=== PATIENT | male | born 1980 | race Caucasian/White ===

== ENCOUNTER 2017-05-29 19:37 | Emergency (ER) | payer MEDICAID ==
[2017-05-29 20:44] LABS: ADD MAN DIFF? NO
[2017-05-29 20:47] LABS: WHITE BLOOD COUNT 5.6 10^3/ul (4.8-10.8)
[2017-05-29 20:47] LABS: BASOPHILS % 0.5 % (0.0-2.0); EOSINOPHILS # 0.2 10^3/ul (0.0-0.5); EOSINOPHILS % 3.4 % (0.0-7.0); HEMATOCRIT 42.7 % (42.0-52.0); HEMOGLOBIN 14.3 g/dl (14.0-18.0); LYMPHOCYTES # 1.3 10^3/ul (0.8-2.9); LYMPHOCYTES % 23.3 % (15.0-51.0); MEAN CORPUSCULAR HEMOGLOBIN 27.8 pg (29.0-33.0); MEAN CORPUSCULAR HGB CONC 33.5 g/dl (32.0-37.0); MEAN CORPUSCULAR VOLUME 82.9 fl (82.0-101.0); MEAN PLATELET VOLUME 9.3 fl (7.4-10.4); MONOCYTE # 0.7 10^3/ul (0.3-0.9); MONOCYTES % 11.6 % (0.0-11.0); NEUTROPHIL # 3.4 10^3/ul (1.6-7.5); NEUTROPHILS % 60.7 % (39.0-77.0); PLATELET COUNT 278 10^3/UL (140-415); RED BLOOD COUNT 5.15 10^6/ul (4.70-6.10); RED CELL DISTRIBUTION WIDTH 12.9 % (11.5-14.5)
[2017-05-29] MEDS: SOD CHLORIDE 0.9% 1,000 ML IV (20:49)
[2017-05-29] MEDS: ACETAMINOPHEN 500 MG TAB PO (20:55)
[2017-05-29 20:56] LABS: ADD UMIC NO; UR ASCORBIC ACID NEGATIVE (NEGATIVE); UR BILIRUBIN (Dip) NEGATIVE (NEGATIVE); UR BLOOD (Dip) NEGATIVE (NEGATIVE); UR CLARITY CLEAR (CLEAR); UR COLOR YELLOW (YELLOW); UR GLUCOSE (Dip) 2+ mg/dL (NEGATIVE); UR KETONES (Dip) NEGATIVE (NEGATIVE); UR LEUKOCYTE ESTERASE (Dip) NEGATIVE Leu/ul (NEGATIVE); UR NITRITE (Dip) NEGATIVE (NEGATIVE); UR SPECIFIC GRAVITY (Dip) 1.021 (1.003-1.030); UR TOTAL PROTEIN (Dip) NEGATIVE (NEGATIVE); UR UROBILINOGEN (Dip) NEGATIVE (NEGATIVE)
[2017-05-29 21:06] LABS: INR 0.93; PROTIME 12.6 Sec (11.9-14.9)
[2017-05-29 21:07] LABS: PARTIAL THROMBOPLASTIN TIME 33.2 Sec (25.0-35.0)
[2017-05-29] MEDS: LEVALBUTEROL (NEB) 1.25 MG/0.5 ML AMP HHN (21:07)
[2017-05-29 21:21] LABS: ALANINE AMINOTRANSFERASE 74 IU/L (13-69); ALBUMIN 4.3 g/dl (3.3-4.9); ALBUMIN/GLOBULIN RATIO 1.22; ALKALINE PHOSPHATASE 92 IU/L (42-121); AMYLASE 54 U/L (11-123); ANION GAP 14 (8-16); ASPARTATE AMINO TRANSFERASE 58 IU/L (15-46); BLOOD UREA NITROGEN 9 mg/dl (7-20); CALCIUM 9.2 mg/dl (8.4-10.2); CARBON DIOXIDE 27 mmol/L (21-31); CHLORIDE 101 mmol/L (97-110); CREATININE 0.91 mg/dl (0.61-1.24); GLUCOSE 206 mg/dl (70-220); LIPASE 50 U/L (23-300); SODIUM 138 mmol/L (135-144); TOTAL PROTEIN 7.8 g/dl (6.1-8.1)
[2017-05-29 21:30] LABS: B-TYPE NATRIURETIC PEPTIDE 15 PG/ML (0-125)
[2017-05-29 21:34] LABS: TROPONIN-I < 0.012 ng/ml (0.00-0.12)
[2017-05-29] MEDS: HYDROCODONE/APAP (10/325) TAB PO (22:11)
[2017-05-29] MEDS: OSELTAMIVIR 75 MG CAP PO (23:25)
== END 2017-05-29 23:25 | disposition home or self-care (01) ==
LOC: FTE 19:37
DX: R07.89 Other chest pain (principal); R50.9 Fever, unspecified; R05 Cough; E11.9 Type 2 diabetes mellitus without complications; R06.02 Shortness of breath
CPT/HCPCS: 36415; 71046; 80053; 81003; 82150; 83690; 83880; 84484; 85025; 85610; 85730; 87400; 93005; 94664; 96360; 99285-25